=== PATIENT | female | born 1960 | race Caucasian/White ===

== ENCOUNTER → 2016-10-28 | Outpatient (CLI) | payer OTHER ==
[~2016-10-28] MED LIST: DILANTIN100 MG PO
== END | disposition disaster alternative care site (69) ==
LOC: GBCOE 11:09
DX: Z12.31 Encounter for screening mammogram for malignant neoplasm of breast (principal); Z91.89 Other specified personal risk factors, not elsewhere classified
CPT/HCPCS: G0202